=== PATIENT | female | born 1970 | race Caucasian/White ===

== ENCOUNTER → 2019-06-26 | Outpatient (CLI) | payer BC, OTHER ==
[~2019-06-26] MED LIST: COZAAR 25 MG TA25 M1 PO; PULMICORT FLE180 MCG IH; SINGULAIR 10 MG10 M1 PO; TOPAMAX 25 MG T25 MG PO; VANCOCIN 250 M250 M1 PO
== END ==
LOC: RAD 10:10
DX: Z12.31 Encounter for screening mammogram for malignant neoplasm of breast (principal)